=== PATIENT | female | born 1970 | race Caucasian/White ===

== ENCOUNTER 2020-12-15 11:02 | Emergency (ER) | payer MEDICARE ==
[~2020-12-15] VITALS: Ht 177.8 cm; Wt 168.0 kg
[2020-12-15] MEDS ORDERED: ABILIFY10 MG PO (11:31)
[2020-12-15] MEDS ORDERED: EFFEXOR XR75 MG/CAP PO (11:31)
[2020-12-15] MEDS ORDERED: TRAZODONE HYDR150 MG PO (11:33)
[2020-12-15] MEDS ORDERED: MINIPRESS2 MG PO (11:33)
[2020-12-15] MEDS ORDERED: ENALAPRIL20 MG PO (11:36)
[2020-12-15] MEDS ORDERED: VISTARIL25 MG PO (11:37)
[2020-12-15] MEDS ORDERED: VOLTAREN1%GEL TOP (13:11)
[2020-12-15 13:30] VITALS: BP 127/81
== END 2020-12-15 13:30 | disposition home or self-care (01) ==
LOC: ED 11:02
DX: M25.512 Pain in left shoulder (principal); I10 Essential (primary) hypertension; M19.012 Primary osteoarthritis, left shoulder

== ENCOUNTER 2021-04-06 16:56 | Emergency (ER) | payer MEDICARE ==
[~2021-04-06 16:56] MED LIST: ABILIFY15 MG PO; EFFEXOR XR75 MG/CAP PO; ENALAPRIL20 MG PO; MINIPRESS2 MG PO; TRAZODONE HYDR150 MG PO; VISTARIL25 MG PO; VOLTAREN1%GEL TOP
[2021-05-02] MEDS ORDERED: EFFEXOR XR37.5 MG PO (11:43)
== END 2021-04-06 17:06 | disposition left against medical advice (07) ==
LOC: ED 16:56 → LWOBS 17:05
DX: Z53.21 Procedure and treatment not carried out due to patient leaving prior to being seen by health care provider (principal)

== ENCOUNTER 2021-05-15 06:00 | Emergency (ER) | payer MEDICARE ==
[~2021-05-15] VITALS: Ht 177.8 cm; Wt 159.0 kg
[~2021-05-15 06:00] MED LIST changes: +EFFEXOR XR37.5 MG PO
[2021-05-15 06:47] LABS: URINE BILIRUBIN - DIPSTICK NEGATIVE (NEGATIVE); URINE BLOOD DIPSTICK NEGATIVE (NEGATIVE); URINE COLOR YELLOW; URINE GLUCOSE - DIPSTICK NEGATIVE (NEGATIVE); URINE KETONE NEGATIVE (NEGATIVE); URINE LEUK ESTERASE TRACE (NEGATIVE); URINE PH 5.5 (4.5-8.0); URINE PROTEIN - DIPSTICK NEGATIVE (NEG-TRACE); URINE SPECIFIC GRAVITY >=1.030; URINE UROBILINOGEN - DIPSTICK 0.2 E.U./dL (0.2)
[2021-05-15 06:47] LABS: HEMATOCRIT 41.4 % (37.0-47.0); HEMOGLOBIN 13.6 g/dl (12.0-16.0); IMMATURE GRANULOCYTES 0.2 % (0.0-5.0); MEAN CORPUSCULAR HGB 29.6 pG CALC (26.0-32.0); MEAN CORPUSCULAR HGB CONC 32.9 g/dL CAL (32.0-36.0); NEUT# 2.09 thou/uL (2.00-7.15); RED BLOOD COUNT 4.6 mill/uL (4.20-5.60); RED CELL DISTRI WIDTH 13.5 % (11.5-15.5)
[2021-05-15 06:49] LABS: URINE NITRITE - DIPSTICK NEGATIVE (Negative)
[2021-05-15 07:01] LABS: ALKALINE PHOSPHATASE 74 u/l (38-126); AMYLASE 45 u/l (30-110); ANION GAP 12 (6-22 (CALC)); BILIRUBIN, TOTAL 0.5 mg/dL (0.0-1.4); BUN 15 mg/dL (7-17); BUN/CREATININE RATIO 14 (12-20 (CALC)); CARBON DIOXIDE 26 mmol/l (22-30); CHLORIDE 106 mmol/l (95-108); CREATININE 1.1 mg/dL (0.5-1.0); GFR 52 ML/MIN (>=60 (CALC)); GFR FOR AFR.AMER. > 60 ML/MIN (>=60 (CALC)); LIPASE 58 u/l (23-300); SGOT/AST 30 u/l (14-36); SODIUM 140 mmol/l (137-146); TOTAL PROTEIN 7.1 g/dL (6.3-8.2)
[2021-05-15 07:13] LABS: D-DIMER 0.4 mg/L (0.19-0.60)
[2021-05-15 07:13] LABS: MYOGLOBIN 27 ng/mL (0 - 62)
[2021-05-15 07:37] LABS: ACT PARTIAL THROMBO TIME 23.6 SECONDS (20.0-32.5); PROTHROMBIN TIME 10.1 SECONDS (9.0-12.5)
[2021-05-15] MEDS ORDERED: NAPROXEN500 MG PO (11:23)
[2021-05-15 11:28] VITALS: BP 156/92
== END 2021-05-15 11:37 | disposition home or self-care (01) ==
LOC: ED 06:00
PROVIDERS: Family Medicine
DX: R07.89 Other chest pain (principal); I10 Essential (primary) hypertension; G47.30 Sleep apnea, unspecified; I25.2 Old myocardial infarction; Z86.16 Personal history of COVID-19; Z87.891 Personal history of nicotine dependence

== ENCOUNTER 2021-09-26 19:44 | Emergency (ER) | payer MEDICARE ==
[~2021-09-26] VITALS: Ht 177.8 cm; Wt 164.0 kg
[~2021-09-26 19:44] MED LIST changes: +NAPROXEN500 MG PO
[2021-09-26] MEDS ORDERED: TRILEPTAL300 M1 PO (21:54)
[2021-09-26 22:32] LABS: HEMATOCRIT 40.2 % (37.0-47.0); HEMOGLOBIN 13.4 g/dl (12.0-16.0); IMMATURE GRANULOCYTES 0.2 % (0.0-5.0); MEAN CELL VOLUME 89.9 fL CALC (80.0-100.0); MEAN CORPUSCULAR HGB CONC 33.3 g/dL CAL (32.0-36.0); NEUT# 2.64 thou/uL (2.00-7.15); RED BLOOD COUNT 4.47 mill/uL (4.20-5.60); RED CELL DISTRI WIDTH 14.1 % (11.5-15.5)
[2021-09-26 22:50] LABS: ALBUMIN 3.9 g/dL (3.2-5.0); ALKALINE PHOSPHATASE 78 u/l (38-126); ANION GAP 11 (6-22 (CALC)); BILIRUBIN, TOTAL 0.3 mg/dL (0.0-1.4); BUN 15 mg/dL (7-17); BUN/CREATININE RATIO 14 (12-20 (CALC)); C-REACTIVE PROTEIN 0.7 mg/dL (0-0.9); CARBON DIOXIDE 28 mmol/l (22-30); CHLORIDE 105 mmol/l (95-108); CPK 58 u/l (30-165); CREATININE 1.1 mg/dL (0.5-1.0); GFR 52 ML/MIN (>=60 (CALC)); GFR FOR AFR.AMER. > 60 ML/MIN (>=60 (CALC)); SGOT/AST 29 u/l (14-36); SODIUM 140 mmol/l (137-146); TOTAL PROTEIN 7.1 g/dL (6.3-8.2)
[2021-09-26 22:56] LABS: MYOGLOBIN 38 ng/mL (0 - 62)
[2021-09-26 23:18] LABS: TSH, 3RD GENERATION 2.54 uIU/mL (0.47 - 4.68)
[2021-09-27 00:52] LABS: URINE BILIRUBIN - DIPSTICK NEGATIVE (NEGATIVE); URINE BLOOD DIPSTICK NEGATIVE (NEGATIVE); URINE COLOR YELLOW; URINE GLUCOSE - DIPSTICK NEGATIVE (NEGATIVE); URINE KETONE NEGATIVE (NEGATIVE); URINE LEUK ESTERASE NEGATIVE (NEGATIVE); URINE PH 5.5 (4.5-8.0); URINE PROTEIN - DIPSTICK NEGATIVE (NEG-TRACE); URINE SPECIFIC GRAVITY >=1.030; URINE UROBILINOGEN - DIPSTICK 0.2 E.U./dL (0.2)
[2021-09-27 00:53] LABS: URINE NITRITE - DIPSTICK NEGATIVE (Negative)
[2021-09-27 01:11] VITALS: BP 140/65
== END 2021-09-27 01:11 | disposition home or self-care (01) ==
LOC: ED 19:44
PROVIDERS: Family Medicine
DX: M25.50 Pain in unspecified joint (principal); M79.10 Myalgia, unspecified site; I10 Essential (primary) hypertension; F31.9 Bipolar disorder, unspecified; I25.2 Old myocardial infarction; Z86.16 Personal history of COVID-19

== ENCOUNTER 2021-12-05 18:41 | Observation (INO) | payer MEDICARE ==
[~2021-12-05] VITALS: Ht 177.8 cm; Wt 166.0 kg
[2021-12-05] VITALS (8 sets, daily range): BP systolic 129–157; BP diastolic 59–104
[~2021-12-05 18:41] MED LIST changes: +TRILEPTAL300 M1 PO
--- NOTE | 2021-12-05 18:45 | NUR ---
pt to room 8 via wc able to stand and transfer self to stretcher without assist.
--- NOTE | 2021-12-05 19:17 | NUR ---
REPORT RECEIVED FROM MIREYA ANN, CARE ASSUMED.
[2021-12-05 19:36] LABS: HEMATOCRIT 41.9 % (37.0-47.0); HEMOGLOBIN 13.5 g/dl (12.0-16.0); IMMATURE GRANULOCYTES 0.3 % (0.0-5.0); MEAN CELL VOLUME 91.9 fL CALC (80.0-100.0); MEAN CORPUSCULAR HGB 29.6 pG CALC (26.0-32.0); MEAN CORPUSCULAR HGB CONC 32.2 g/dL CAL (32.0-36.0); NEUT# 3.88 thou/uL (2.00-7.15); RED BLOOD COUNT 4.56 mill/uL (4.20-5.60); RED CELL DISTRI WIDTH 13.6 % (11.5-15.5)
--- NOTE | 2021-12-05 19:49 | NUR ---
PT IN ROOM, ON MONITOR, WITH FAMILY AT BEDSIDE, AWAITING RESULTS. WILL CONT TO MONITOR.
[2021-12-05 19:50] LABS: ALKALINE PHOSPHATASE 93 u/l (38-126); AMYLASE 68 u/l (30-110); ANION GAP 13 (6-22 (CALC)); BILIRUBIN, TOTAL 0.2 mg/dL (0.0-1.4); BUN 14 mg/dL (7-17); BUN/CREATININE RATIO 12 (12-20 (CALC)); CARBON DIOXIDE 23 mmol/l (22-30); CHLORIDE 110 mmol/l (95-108); CREATININE 1.1 mg/dL (0.5-1.0); D-DIMER 0.44 mg/L (0.19-0.60); GFR 52 ML/MIN (>=60 (CALC)); GFR FOR AFR.AMER. > 60 ML/MIN (>=60 (CALC)); LIPASE 67 u/l (23-300); POTASSIUM 4.2 mmol/l (3.5-5.1); SGOT/AST 35 u/l (14-36); SODIUM 141 mmol/l (137-146)
[2021-12-05 19:55] LABS: INTERNATIONAL NORMALIZED RATIO 0.9 RATIO (0.7-1.3); PROTHROMBIN TIME 9.8 SECONDS (9.0-12.5)
[2021-12-05 20:02] LABS: URINE BILIRUBIN - DIPSTICK NEGATIVE (NEGATIVE); URINE BLOOD DIPSTICK NEGATIVE (NEGATIVE); URINE COLOR YELLOW; URINE GLUCOSE - DIPSTICK NEGATIVE (NEGATIVE); URINE KETONE TRACE mg/dL (NEGATIVE); URINE LEUK ESTERASE NEGATIVE (NEGATIVE); URINE PH 5.5 (4.5-8.0); URINE PROTEIN - DIPSTICK NEGATIVE (NEG-TRACE); URINE SPECIFIC GRAVITY >=1.030; URINE UROBILINOGEN - DIPSTICK 0.2 E.U./dL (0.2)
[2021-12-05 20:02] LABS: MYOGLOBIN 35 ng/mL (0 - 62)
[2021-12-05 20:04] LABS: URINE NITRITE - DIPSTICK NEGATIVE (Negative)
--- NOTE | 2021-12-05 20:31 | NUR ---
PT IN ROOM RESTING QUIETLY ON MONITOR WITH FAMILY AT BEDSIDE, WILL CONT TO MONITOR.
--- NOTE | 2021-12-05 21:21 | NUR ---
PT RESTING QUIETLY IN ROOM, ON MONITOR WITH FAMILY AT BEDSIDE, PENDING ADMISSION, WILL CONT TO MONITOR.
--- NOTE | 2021-12-05 22:05 | NUR ---
PT PENDING ADMISSION PENDING REPORT BEING CALLED TO [facility], ONE ATTEMPT MADE TO CALL REPORT.
--- NOTE | 2021-12-05 22:24 | NUR ---
REPORT CALLED TO RASTA ANN, ALSO EXPRESSED THAT [facility] IS REQUESTING DOSE VERIFICATION FROM ATTENDING PHYSICIAN AND THAT PT NEEDS NIGHT TIME TRAZADONE UPON ARRIVAL IN MED SURG.
--- NOTE | 2021-12-05 22:32 | NUR ---
PT TRANSPORTED TO [facility] VIA WHEELCHAIR BY ED STAFF.
--- NOTE | 2021-12-05 22:32 | NUR ---
RECEIVED PATIENT ON UNIT BY WHEELCHAIR AT THIS TIME AND REPORT GIVEN TO THIS NURSE BY RN ROBBIE. PATIENT IS ALERT AND ORIENTED X 3. HOLE FILLER DONE AT THIS TIME. PATIENT DENIES ANY PAIN AND ROOM ORIENTATION GIVEN AND SAFETY ORIENTATION GIVEN. SIDERAILS ARE UP X 2. PATIENT LUNG JOHNSON ARE CLEAR IN ALL LUNG JOHNSON AT THIS TIME. PATIENT HAS ACTIVE BOWEL SOUNDS IN ALL FOUR QUADS AND STATED HER LAST BM WAS ON 12/05/21 AND WAS "NORMAL" FOR HER. PATIENT PRESENTS MORBIDLY OBESE NO SIGNS OF EDEMA NOTED AT THIS TIME. PATIENT IS ON TELE AND MONITOR IS READING SINUS RHYTHM AND HEART RATE OF 80. PATIENT DOES RELY ON C-PAP AND OWN MACHINE BROUGHT IN AND RESPIRATORY SET UP. WILL CONTINUE TO MONITOR.
[2021-12-06 00:17] VITALS: BP 128/61
--- NOTE | 2021-12-06 01:51 | NUR ---
PATIENT RESTING IN BED AT THIS TIME WITH C-PAP ON. SIDERAILS ARE UP CALL LIGHT IS WITHIN REACH. PATIENT DENIES ANY PAIN AT THIS TIME. WILL CONTINUE TO MONITOR.
--- NOTE | 2021-12-06 04:05 | NUR ---
PATIENT LAYING IN BED WITH C-PAP ON. PATIENT DENIES ANY PAIN AT THIS TIME. PATINET REMAIN TO BE MONITORED BY ED ON TELE AND SIDERAILS REMAIN UP X 2 AND CALL LIGHT WITHIN REACH.
--- NOTE | 2021-12-06 07:00 | NUR ---
RECEIVE REPORT FROM RASTA ANN.
[2021-12-06 08:00] VITALS: BP 129/67
--- NOTE | 2021-12-06 08:00 | NUR ---
PATIENT AWAKE/ALERT, LYING IN BED, C/O ONLY MILD DISCOMFORT IN CHEST, VITALS STABLE, WDL, LUNGS CLEAR, ALL QUESTIONS ANSWERED.
[2021-12-06] MEDS ORDERED: ASPIRIN ADULT L81 M2 PO (10:44)
--- NOTE | 2021-12-06 11:00 | NUR ---
Patient is discharged stable. Patient is educarted about medications at home and doctors follow up. Patient refer understand.
[2021-12-06 11:06] VITALS: BP 133/76
== END 2021-12-06 11:00 | disposition home or self-care (01) ==
LOC: ED 18:41 → ED-I 20:23 → ED 20:35 → MS2 20:36
PROVIDERS: Family Medicine; ADMIT Internal Medicine; ATTEND Internal Medicine
DX: R07.9 Chest pain, unspecified (principal); I10 Essential (primary) hypertension; F31.9 Bipolar disorder, unspecified; G47.33 Obstructive sleep apnea (adult) (pediatric); E66.01 Morbid (severe) obesity due to excess calories; I25.2 Old myocardial infarction; Z68.43 Body mass index [BMI] 50.0-59.9, adult; Z86.16 Personal history of COVID-19; Z20.822 Contact with and (suspected) exposure to COVID-19
CPT/HCPCS: G0378; J1650

== ENCOUNTER 2022-02-18 20:50 | Emergency (ER) | payer MEDICARE ==
[~2022-02-18] VITALS: Ht 177.8 cm; Wt 170.0 kg
[~2022-02-18 20:50] MED LIST changes: +ASPIRIN ADULT L81 M2 PO
[2022-02-18 21:28] VITALS: BP 145/88
[2022-02-18 21:31] VITALS: BP 141/85
[2022-02-18 21:57] LABS: HEMATOCRIT 38.7 % (37.0-47.0); HEMOGLOBIN 12.9 g/dl (12.0-16.0); IMMATURE GRANULOCYTES 0.4 % (0.0-5.0); MEAN CELL VOLUME 88.4 fL CALC (80.0-100.0); MEAN CORPUSCULAR HGB 29.5 pG CALC (26.0-32.0); MEAN CORPUSCULAR HGB CONC 33.3 g/dL CAL (32.0-36.0); NEUT# 3.49 thou/uL (2.00-7.15); RED BLOOD COUNT 4.38 mill/uL (4.20-5.60); RED CELL DISTRI WIDTH 13.4 % (11.5-15.5)
[2022-02-18 21:58] LABS: URINE BILIRUBIN - DIPSTICK NEGATIVE (NEGATIVE); URINE BLOOD DIPSTICK NEGATIVE (NEGATIVE); URINE COLOR YELLOW; URINE GLUCOSE - DIPSTICK NEGATIVE (NEGATIVE); URINE KETONE NEGATIVE (NEGATIVE); URINE LEUK ESTERASE NEGATIVE (NEGATIVE); URINE PH 6.5 (4.5-8.0); URINE PROTEIN - DIPSTICK NEGATIVE (NEG-TRACE); URINE SPECIFIC GRAVITY >=1.030; URINE UROBILINOGEN - DIPSTICK 0.2 E.U./dL (0.2)
[2022-02-18 21:59] LABS: URINE NITRITE - DIPSTICK NEGATIVE (Negative)
[2022-02-18 22:14] LABS: ALBUMIN 3.9 g/dL (3.2-5.0); ANION GAP 10 (6-22 (CALC)); BUN 13 mg/dL (7-17); BUN/CREATININE RATIO 15 (12-20 (CALC)); CARBON DIOXIDE 26 mmol/l (22-30); CHLORIDE 107 mmol/l (95-108); CREATININE 0.9 mg/dL (0.5-1.0); GFR FOR AFR.AMER. > 60 ML/MIN (>=60 (CALC)); GFR OTHER RACES > 60 ML/MIN (>=60 (CALC)); SGOT/AST 32 u/l (14-36); SODIUM 139 mmol/l (137-146)
[2022-02-18 22:29] LABS: ALKALINE PHOSPHATASE 80 u/l (38-126)
[2022-02-18 22:30] VITALS: BP 158/93
[2022-02-18 22:30] LABS: BILIRUBIN, TOTAL 0.3 mg/dL (0.0-1.4)
[2022-02-18] MEDS ORDERED: FIORICET PO (23:20)
[2022-02-18 23:27] VITALS: BP 147/74
[2022-02-18 23:32] VITALS: BP 145/75
== END 2022-02-18 23:38 | disposition home or self-care (01) ==
LOC: ED 20:50
PROVIDERS: Emergency Medicine
DX: R51.9 Headache, unspecified (principal); I10 Essential (primary) hypertension; F31.9 Bipolar disorder, unspecified; I25.2 Old myocardial infarction; Z86.16 Personal history of COVID-19

== ENCOUNTER 2022-07-12 21:53 | Emergency (ER) | payer MEDICARE ==
[~2022-07-12] VITALS: Ht 177.8 cm; Wt 163.0 kg
[~2022-07-12 21:53] MED LIST changes: +FIORICET PO
[2022-07-12 23:03] VITALS: BP 159/59
[2022-07-12 23:16] VITALS: BP 127/80
[2022-07-12 23:31] VITALS: BP 120/76
[2022-07-12 23:46] VITALS: BP 137/68
[2022-07-13 00:01] VITALS: BP 143/77
[2022-07-13] MEDS ORDERED: GENTAMICIN SULF5 ML OD (00:07)
[2022-07-13] MEDS ORDERED: (None)3.5 GM OD (00:07)
[2022-07-13 00:16] VITALS: BP 150/92
[2022-07-13 00:31] VITALS: BP 154/68
== END 2022-07-13 00:44 | disposition home or self-care (01) ==
LOC: ED 21:53
DX: H10.9 Unspecified conjunctivitis (principal); I10 Essential (primary) hypertension; F31.9 Bipolar disorder, unspecified; I25.2 Old myocardial infarction; Z86.16 Personal history of COVID-19